=== PATIENT | male | born 1995 | race Caucasian/White ===

== ENCOUNTER 2021-10-11 11:03 | Emergency (ER) | payer OTHER ==
[~2021-10-11] VITALS: Ht 188 cm; Wt 88.6 kg
[2021-10-11] MEDS ORDERED: FISH1000 PO (11:32)
[2021-10-11] MEDS ORDERED: D-10TAB3 PO (11:32)
[2021-10-11] MEDS ORDERED: VENTAER INH (12:49)
[2021-10-11 12:59] VITALS: BP 141/78
== END 2021-10-11 13:02 | disposition home or self-care (01) ==
LOC: M ED 11:03
DX: J20.9 Acute bronchitis, unspecified (principal); Z79.899 Other long term (current) drug therapy; Z86.16 Personal history of COVID-19